=== PATIENT | male | born 1960 | race American Indian/Alaskan Native ===

== ENCOUNTER 2021-05-18 08:00 | Outpatient (CLI) | payer OTHER | END 2021-05-18 08:30 | disposition home or self-care (01) | LOC: PPH VACUNA 08:00 | PROVIDERS: ATTEND Emergency Medicine Pediatric Emergency Medicine | DX: Z23 Encounter for immunization (principal) ==

== ENCOUNTER 2022-11-06 09:49 | Emergency (ER) | payer OTHER ==
[~2022-11-06] VITALS: Ht 170.2 cm; Wt 88.5 kg
[2022-11-06] MEDS ORDERED: KETO10TA2 PO (14:52)
[2022-11-06] MEDS ORDERED: MEDROLPACK PO (14:52)
== END 2022-11-06 14:58 | disposition home or self-care (01) ==
LOC: ER 09:49
DX: N20.1 Calculus of ureter (principal); T78.40XA Allergy, unspecified, initial encounter; E11.9 Type 2 diabetes mellitus without complications; I10 Essential (primary) hypertension

== ENCOUNTER 2022-11-09 10:17 | Emergency (ER) | payer OTHER ==
[~2022-11-09] VITALS: Ht 170.2 cm; Wt 88.5 kg
[~2022-11-09 10:17] MED LIST: KETO10TA2 PO; MEDROLPACK PO
[2022-11-09] MEDS ORDERED: TAMS0.4C PO (12:57)
[2022-11-09] MEDS ORDERED: KETO10TA2 PO (12:57)
== END 2022-11-09 13:00 | disposition home or self-care (01) ==
LOC: ER 10:17
DX: T78.49XA Other allergy, initial encounter (principal); X58.XXXA Exposure to other specified factors, initial encounter; N20.0 Calculus of kidney

== ENCOUNTER 2022-12-11 09:43 | Day surgery (SDC) | payer OTHER ==
[~2022-12-11] VITALS: Ht 170.2 cm; Wt 86.2 kg
[~2022-12-11 09:43] MED LIST changes: +TAMS0.4C PO; +TOPROL XL50 M1 PO
[2022-12-11] MEDS ORDERED: DICLOFENAC SODI50 MG PO (15:51)
[2022-12-11] MEDS ORDERED: PYRIDIUM200 MG PO (15:51)
[2022-12-11] MEDS ORDERED: LEVOFLOXACIN500 MG PO (15:52)
== END 2022-12-11 20:00 | disposition home or self-care (01) ==
LOC: CIR.AMB 09:43
PROVIDERS: ATTEND Surgery
DX: N20.1 Calculus of ureter (principal); Z88.6 Allergy status to analgesic agent